=== PATIENT | female | born 1965 | race Two or more races ===

== ENCOUNTER → 2024-05-02 | Outpatient (CLI) | payer BC, SELFPAY ==
--- NOTE | 2024-05-02 13:30 | XR_ITS ---
Examination: Thyroid sonography complete TECHNIQUE: Multiple high-resolution grayscale sonographic images thyroid lobes with color flow analysis Exam date and time: 12/01/2023 1329 hours INDICATIONS: Palpable lump in the mid neck note is beginning one month ago FINDINGS: Right thyroid 4.9 x 1.9 x 1.7 cm Upper pole nodules 6 x 8 mm, 4 x 4 mm, 9 x 8 mm Left thyroid 5.5 x 1.9 x 2.2 cm Upper pole nodules 1.6 x 1.1 cm, 6 x 5 mm Mid to lower pole nodule vascular 1.9 x 1.8 x 2.0 cm IMPRESSION: Multiple thyroid nodules, consider ultrasound-guided fine-needle aspiration of the large vascular mid to lower pole left thyroid nodule
== END ==
PROVIDERS: PCP Family Medicine; Referring Provider Family Medicine; Visit Provider Family Medicine
DX: E04.2 Nontoxic multinodular goiter (principal)
CPT/HCPCS: 76536

== ENCOUNTER → 2024-05-06 | Outpatient (CLI) | payer BC, SELFPAY ==
[2024-05-06 17:04] LABS: T4 (Thyroxine) 10.3 mcg/dL (4.5-10.9)
[2024-05-06 17:09] LABS: Procalcitonin < 0.04 ng/ml (0.0-0.49); Thyroid Stimulating Hormone 1.97 uIU/mL (0.55-4.78)
== END | disposition home or self-care (01) ==
LOC: COPL 15:49
PROVIDERS: PCP Family Medicine; Referring Provider Family Medicine; Visit Provider Family Medicine
DX: E04.9 Nontoxic goiter, unspecified (principal)
CPT/HCPCS: 36415; 84145; 84436; 84439; 84443

== ENCOUNTER → 2024-08-08 | Outpatient (CLI) | payer BC, SELFPAY ==
[2024-08-08 17:57] LABS: Glucose Estimated Average 114 mg/dL (80-131); Hemoglobin A1C 5.6 % Hgb (4.8-6.0)
[2024-08-08 18:01] LABS: Cardiac Risk Estimate 6.3 RATIO (3.7-5.6); Cholesterol 184 mg/dL (132-200); HDL Cholesterol 29 mg/dL (40-60); LDL Cholesterol,Calculated 117 mg/dL (0-130); Triglycerides 189 mg/dL (30-150)
== END | disposition home or self-care (01) ==
LOC: COPL 16:35
PROVIDERS: PCP Family Medicine; Referring Provider Family Medicine; Visit Provider Family Medicine
DX: R73.03 Prediabetes (principal); E78.2 Mixed hyperlipidemia
CPT/HCPCS: 36415; 80061; 83036